=== PATIENT | male | born 1995 | race Caucasian/White ===

== ENCOUNTER 2023-01-10 15:10 | Emergency (ER) | payer OTHER ==
[~2023-01-10] VITALS: Ht 172.7 cm; Wt 74.5 kg
[2023-01-10 15:56] VITALS: BP 147/94
== END 2023-01-10 17:49 | disposition home or self-care (01) ==
LOC: M ED 15:10
DX: F43.9 Reaction to severe stress, unspecified (principal); F32.9 Major depressive disorder, single episode, unspecified

== ENCOUNTER → 2024-02-27 | Outpatient (REF) | LOC: M PLAIMG 10:14 | PROVIDERS: ATTEND Internal Medicine | DX: R52 Pain, unspecified (principal) ==